=== PATIENT | female | born 1960 | race African-American/Black ===

== ENCOUNTER 2018-10-16 16:30 | Emergency (ER) | payer MEDICAID ==
[~2018-10-16] VITALS: Ht 172.7 cm
[2018-10-16 17:12] VITALS: BP 180/95
== END 2018-10-16 19:55 | disposition home or self-care (01) ==
LOC: ER 16:37
DX: S20.212A Contusion of left front wall of thorax, initial encounter (principal); M25.552 Pain in left hip; M25.572 Pain in left ankle and joints of left foot; J45.909 Unspecified asthma, uncomplicated; I10 Essential (primary) hypertension; F17.210 Nicotine dependence, cigarettes, uncomplicated; W18.39XA Other fall on same level, initial encounter; Y93.89 Activity, other specified; Y92.89 Other specified places as the place of occurrence of the external cause; Y99.8 Other external cause status
CPT/HCPCS: 71101; 73501; 73600